=== PATIENT | male | born 1960 | race Caucasian/White ===

== ENCOUNTER 2022-06-04 13:27 | Emergency (ER) | payer BC, SELFPAY ==
[2022-06-04] VITALS (34 sets, daily range): BP systolic 130–193; BP diastolic 77–158; PULSE 118–139; RESP 20–39; O2SAT 86–96
--- NOTE | ~2022-06-04 | CT_ITS ---
EXAMINATION: CTA chest PE protocol DATE: 06/04/2022 15:45 INDICATION: SOA TECHNIQUE: Computed tomography angiography (CTA) of the chest was performed with 100 mL Omnipaque-350 intravenous contrast timed to evaluate the pulmonary arteries. Coronal maximum intensity projection 3D-reconstructions were created by the technologist. The dose-length product (DLP) was 1147.82 mGy-cm . Automated exposure control and iterative reconstruction technique were employed. COMPARISON: None. FINDINGS: Lung parenchyma and airways: Motion artifact obscures details. Wedge-shaped peripheral consolidation in the posterior aspect of the left upper lobe. Patchy areas of central groundglass opacity/consolida tion in the left upper and lower lobes. Pleura: Unremarkable. Thoracic inlet, axillae and chest wall: Unremarkable. Thoracic aorta: Normal. Mediastinum: Normal. Heart and pericardium: Normal. RV/LV ratio 1.2. Coronary artery calcifications: Absent. Upper abdomen: Gallbladder hydrops, possibly secondary to fasting state. Bones: No acute osseous finding. Pulmonary arteries: Study quality: Considerable motion artifact. Multiple nonocclusive segmental and subsegmental emboli are present in all lobes. IMPRESSION: Segmental and subsegmental emboli affecting all lung lobes. Elevated RV/LV ratio of 1.2. Subsegmental consolidation in the posterior aspect of the left upper lobe which may represent atelectasis, infect ion, or infarction. More diffuse, centralized left upper and lower lobe opacities likely represent ed jay jay or infection. Results reported telephonically to Dr. Cortes by Dr. Jane at 3:54 PM on 06/04/2022. Reviewed, dictated and finalized at location K. T SUPERINTENDENT IMPRESSION: Segmental and subsegmental emboli affecting all lung lobes. Elevated RV/LV rati o of 1.2. Subsegmental consolidation in the posterior aspect of the left upper lobe which may represent atelectasis, infection, or infarction. More diffuse, c entralized left upper and lower lobe opacities likely represent edema or infect ion. Results reported telephonically to Dr. Cortes by Dr. Jane at 3:54 PM on 06/04.
--- NOTE | 2022-06-04 13:36 | ECG_ITS ---
Measurements Intervals Amo Rate: 126 P: 47 IL: 161 QRS: -19 QRSD: 89 T: 69 QT: 332 QTc: 481 Interpretive Statements SINUS TACHYCARDIA NONSPECIFIC ST & T-WAVE ABNORMALITY ABNORMAL ECG NO PREVIOUS ECG AVAILABLE FOR COMPARISON Electronically Signed On 06-08-2022 13:01:01 WELDING MACHINE FEEDER by Cesar Cook M.D.
[2022-06-04] MEDS: methylPREDNISolone SOD SUCC 125 MG VIAL IV PUSH (13:47)
[2022-06-04] MEDS: ALBUTEROL SULFATE NEB 2.5 MG/3 ML INH 15 MG INHALATION (13:51)
[2022-06-04] MEDS: IPRATROPIUM BR 0.02% INH SOLN 0.5 MG/2.5 ML VIAL 1.5 MG INHALATION (13:51)
[2022-06-04 14:02] LABS: Alveolar/Arterial O2 Gradient 204.8 mmHg; Base Excess ABG 1.1 mEq/l (+/-2.0); Fractional Inspired Oxygen 44 %; HCO3 ABG 25.4 mEq/l (22.0-26.0); Oxygen Saturation ABG 93.1 % (95.0-100.0); Oxyhemoglobin 91.5 % THb (90.0-100.0); PCO2 ABG 39.2 mmHg (35.0-45.0); PO2 ABG 64.2 mmHg (80.0-100.0); PO2 FiO2 Ratio Arterial Blood 1.46 %; Total Hemoglobin 17.1 g/dL (12.0-18.0); pH ABG 7.429 (7.350-7.450)
[2022-06-04 14:03] LABS: Device NASAL CANNULA; Modified Allen's Test Pass; Site Drawn LEFT RADIAL
[2022-06-04 14:05] LABS: Alanine Aminotransferase 24 U/L (6-50); Albumin Level 4.7 g/dL (3.5-5.1); Alkaline Phosphatase 114 U/L (38-126); Anion Gap 8 mmol/L (8-16); Aspartate Amino Transferase 27 U/L (17-59); Bilirubin,Total 0.7 mg/dL (0.2-1.3); Blood Urea Nitrogen 11 mg/dL (9-20); Calcium 8.9 mg/dL (8.4-10.2); Carbon Dioxide 28 mmol/L (22-30); Chloride 100 mmol/L (98-107); Estimated CRCL calculation 82 ml/min; Estimated Glomerular Filt Rate > 60; Glucose 138 mg/dL (65-110); Potassium 3.9 mmol/L (3.4-5.0); Sodium 136 mmol/L (137-145)
[2022-06-04 14:11] LABS: Basophils Absolute Auto 0.1 K/mm3 (0.0-0.1); Basophils Percent Auto 0.7 % (0.2-1.2); Eosinophils Absolute Auto 0.2 K/mm3 (0-0.3); Eosinophils Percent Auto 1.9 % (0-4.4); Hematocrit 53.1 % (42.0-52.0); Hemoglobin 17.2 g/dL (14.0-18.0); Immature Granulocyte Absolute 0.06 K/mm3 (0.00-0.031); Immature Granulocyte Percent A 0.5 % (0-0.5); Lymphocytes Absolute Auto 1.29 K/mm3 (0.9-3.2); Lymphocytes Percent Auto 10.1 % (18.3-44.2); Mean Corpuscular HGB Conc 32.4 g/dl (32-36); Mean Corpuscular Hemoglobin 27.9 pg (26-34); Mean Corpuscular Volume 86.2 fl (80-100); Mean Platelet Volume 9.4 fl (7.4-10.4); Monocytes Absolute Auto 1.2 K/mm3 (0.1-0.6); Monocytes Percent Auto 9.5 % (2.6-8.5); Neutrophils Absolute Auto 9.9 K/mm3 (1.3-6.7); Neutrophils Percent Auto 77.3 % (45.5-73.1); Platelet Count Result 284 k/mm3 (150-375); Red Blood Count 6.16 M/mm3 (4.6-6.20); Red Cell Distribution Width 13.8 % (11.5-14.5); White Blood Count 12.8 K/mm3 (4.5-10.0)
[2022-06-04 14:14] LABS: NT Pro B Type Natriuretic Pept 426 pg/mL (19.9-100)
[2022-06-04 14:30] LABS: Influenza A QL RT-PCR Negative (Negative); Influenza B QL RT-PCR Negative (Negative); SARS-CoV-2 RNA PCR Negative
--- NOTE | 2022-06-04 15:01 | ED.SOB ---
HPI - SOB/Dyspnea General Chief Complaint: Shortness of Breath/Dyspnea Stated Complaint: bronchitis, SOB Time Seen by Provider: 06/04/22 13:32 History of Present Illness HPI Narrative: Patient is a 62-year-old male who presents ER with shortness of breath. Patient diagnosed with bronchitis after going to urgent care yesterday. Prescribed albuterol and amoxicillin. Symptoms worsening today. O2 saturation in the 70s at home. He is having chest tightness and pain with breath. No lower extremity edema or cramping. Reports he has had frequent cough. No fevers or chills. He has had some sweats. Does not typically require oxygen. No known sick contacts he is not immunized for COVID but he did have it in 2019. No long distance travel or recent trauma. No history of malignancy. Related Data Allergies Allergy/AdvReac Type Severity Reaction Status Date / Time No Known Allergies Allergy Unknown Unverified 06/04/22 13:44 Review of Systems Review of Systems: All systems reviewed & are unremarkable except as noted in HPI and below Constitutional: Constitutional: Denies chills, Denies fatigue and Denies fever(s) ENT: Denies nasal congestion and Denies sore throat Cardiovascular: Cardiovascular: Reports chest pain, Reports rapid heart rate and Denies radiating jaw, neck or arm pain Respiratory: Respiratory: Reports cough and Reports dyspnea Gastrointestinal: Gastrointestinal: Denies abdominal pain, Denies nausea and Denies vomiting Musculoskeletal: Musculoskeletal: Denies back pain, Denies arthralgias and Denies joint swelling PMFSH Past Medical History Medical History (Updated 06/04/22 @ 18:48 by Leif Cortes MD) Hyperlipidemia Hypothyroidism Surgical History Surgical History (Updated 06/04/22 @ 18:45 by Leif Cortes MD) No pertinent past surgical history Exam Narrative: GENERAL: Uncomfortable-appearing, well-nourished, and in distress. HEAD: Normocephalic, atraumatic. EYES: PERRL and EOMI. ENT: Mucous membranes moist. CHEST: Increased respiratory rate with faint wheezing throughout. HEART: Tachycardic and regular. Normal peripheral pulses. ABDOMEN: Soft, nontender, nondistended. EXTREMITIES: Normal range of motion. No edema. SKIN: Warm, dry, no rash. NEURO: No focal deficits. Alert and oriented x3. PSYCH: Appropriately anxious but otherwise normal mentation. Course Reevaluation(s) Reevaluation #1: Patient resting comfortably. Informed of diagnosis and seriousness of illness. He has been started on IV heparin. I began trying to admit him to the hospital service but patient spoke with his and would like to go to [facility] where his PCP Dr. Chance practices. I have contacted [facility] and have spoken with the hospitalist Dr. Marmolejo who has excepted the patient for transfer but he would like me to speak with the research environmental engineer to determine the best location in the hospital for the patient to be. Patient family aware of these efforts and we are awaiting to speak with the research environmental engineer. Date: 06/04/22 Time: 17:40 Reevaluation #2: [facility] is determined patient is okay to go to their stepdown unit and not ICU. They have given us a bed and patient will be transferred via ALS ambulance. Date: 06/04/22 Time: 18:55 Vital Signs Vital signs: Vital Signs Pulse Rate 126 H 06/04/22 13:36 Respiratory Rate 25 H 06/04/22 13:36 Blood Pressure 142/89 H 06/04/22 13:36 Pulse Oximetry 90 06/04/22 13:36 Pulse Rate 139 H 06/04/22 16:21 Respiratory Rate 24 H 06/04/22 16:21 Blood Pressure 149/77 H 06/04/22 16:21 Pulse Oximetry 91 06/04/22 16:21 Oxygen Delivery Nasal Cannula 06/04/22 15:30 Oxygen Flow Rate 4 06/04/22 15:30 MDM - SOB/Dyspnea Lab Data 06/04/22 13:48 06/04/22 13:48 Labs: Lab Results 06/04/22 06/04/22 06/04/22 Range/Units 13:48 13:48 13:50 WBC 12.8 H (4.5-10.0) K/mm3 RBC 6.16 (4.6-6.20) M/mm3 Hgb 17.2 (1
[2022-06-04] MEDS: HEPARIN SOD/D5W 100 UNITS/ML 25,000 UNITS/250 ML BAG 15 UNITS IV CONT (16:11)
[2022-06-04] MEDS: HEPARIN SODIUM 5,000 UNITS/ML VIAL 8000 UNITS IV PUSH (16:17)
[2022-06-04 16:30] LABS: Hematocrit 51.3 % (42.0-52.0); Hemoglobin 16.8 g/dL (14.0-18.0); Mean Corpuscular HGB Conc 32.7 g/dl (32-36); Mean Corpuscular Hemoglobin 27.9 pg (26-34); Mean Corpuscular Volume 85.1 fl (80-100); Mean Platelet Volume 9.3 fl (7.4-10.4); Platelet Count Result 285 k/mm3 (150-375); Red Blood Count 6.03 M/mm3 (4.6-6.20); Red Cell Distribution Width 13.6 % (11.5-14.5); White Blood Count 16.6 K/mm3 (4.5-10.0)
[2022-06-04 16:42] LABS: INR 1.1; Partial Thromboplastin Time 25.5 SECONDS (22.3-36.8); Prothrombin Time 14.1 Seconds (11.1-14.7)
[2022-06-04 16:59] LABS: Band Neutrophils Percent 2 % (0-6); Basophils Absolute Manual 0.16 K/mm3 (0.0-0.1); Basophils Percent Manual 1 % (0-1); Lymphocytes Absolute Manual 0.33 K/mm3 (1.1-4.5); Monocytes Absolute Manual 0.66 K/mm3 (0.1-0.90); Monocytes Percent Manual 4 % (3-9); Neutrophils Absolute Manual 15.43 K/mm3 (1.3-6.7); Neutrophils Percent Manual 91 % (46-73); Platelet Estimate Adequate (Adequate); Schistocytes Rare (NORMAL); Total Cells Counted 100
[2022-06-04 17:07] LABS: Troponin I 0.358 ng/mL (0.000-0.034)
--- NOTE | 2022-06-04 20:42 | PC.NURSE ---
192: Called [facility] for ALS transport to [facility]. ETA 0015+ 1944: Called [facility]...NO TRUCKS AVAILABLE 1945: Called [facility] Med: ETA 2029 2003: Cancelled [facility].
== END 2022-06-04 21:18 | disposition short-term general hospital (02) ==
PROVIDERS: Emergency Provider Emergency Medicine
DX: I26.99 Other pulmonary embolism without acute cor pulmonale (principal); Z20.822 Contact with and (suspected) exposure to COVID-19; E78.5 Hyperlipidemia, unspecified; E03.9 Hypothyroidism, unspecified; Z28.310 Unvaccinated for COVID-19; Z86.16 Personal history of COVID-19
CPT/HCPCS: 36415; 36600; 71275; 80053; 82805; 83880; 84484; 85025; 85610; 85730; 87636; 93005; 94640; 96365; 96366; 96375; 99285; J1644; J2930; Q9967